=== PATIENT | female | born 1955 | race Caucasian/White ===

== ENCOUNTER 2020-08-06 17:41 | Observation (INO) | payer OTHER ==
[~2020-08-06] VITALS: Ht 157.5 cm; Wt 83.9 kg
[2020-08-06 17:44] VITALS: BP_SYST 160
[2020-08-06 18:36] LABS: BASOPHILS % (AUTO) 0.6 % (0.0-2.0); EOSINOPHILS # (AUTO) 0.3 K/uL (0.0-0.4); EOSINOPHILS % (AUTO) 4.9 % (0.0-4.0); HEMOGLOBIN 14.5 g/dL (12.0-16.0); LYMPHOCYTES # (AUTO) 1.9 K/uL (1.0-5.5); LYMPHOCYTES % (AUTO) 34.1 % (20.5-51.5); MEAN CORPUSCULAR HEMOGLOBIN 32 pg (27-31); MEAN CORPUSCULAR HGB CONC 35 % (32-36); MEAN CORPUSCULAR VOLUME 93 fL (79.0-98.0); MONOCYTES # (AUTO) 0.4 K/uL (0.0-1.0); MONOCYTES % (AUTO) 7.7 % (1.7-9.3); NEUTROPHILS % (AUTO) 52.7 % (40.0-70.0); PLATELET COUNT (AUTO) 211 K/uL (130-430); RED BLOOD CELL COUNT(AUTO) 4.52 MIL/uL (4.2-6.2); RED CELL DISTRIBUTION WIDTH 13.1 % (9.0-15.0); WHITE BLOOD COUNT (AUTO) 5.6 K/uL (4.8-10.8)
[2020-08-06 18:49] LABS: BILIRUBIN,URINE NEGATIVE (NEGATIVE); BLOOD, URINE NEGATIVE (NEGATIVE); CLARITY/URINE CLEAR (CLEAR); COLOR,URINE YELLOW (YELLOW); GLUCOSE,URINE NEGATIVE (NEGATIVE); KETONES,URINE NEGATIVE (NEGATIVE); LEUKOCYTE ESTERASE ,URINE TRACE (NEGATIVE); NITRITE, URINE NEGATIVE (NEGATIVE); PROTEIN URINE NEGATIVE (NEGATIVE); UROBILINOGEN,URINE 0.2 (0.2-1.0)
[2020-08-06 18:51] LABS: ANION GAP 9 (5-15); CHLORIDE 105 mmol/L (98-107); CREATININE 0.72 mg/dL (0.55-1.30); GLUCOSE 122 mg/dL (70-99); POTASSIUM 3.8 mmol/L (3.5-5.1); SODIUM SERUM 143 mmol/L (136-145); UREA NITROGEN, BLOOD 15 mg/dL (8-21)
[2020-08-06 18:52] LABS: GFR AFRICAN AMERICAN 105 mL/min (>90)
[2020-08-06 19:00] LABS: BACTERIA,URINE RARE /HPF (None Seen); RBC,URINE NONE SEEN /HPF (0-3); WBC,URINE 0-3 /HPF (0-3)
[2020-08-06] MEDS ORDERED: ASPIRIN 325 MG TABLET PO ONE (19:30)
[2020-08-06] MEDS ORDERED: LOSA25TA18 PO (20:27)
[2020-08-06] MEDS ORDERED: FLAX100032 PO (20:27)
[2020-08-06] MEDS ORDERED: VENL37.587 PO (20:27)
[2020-08-06] MEDS ORDERED: CYAN250010 PO (20:27)
[2020-08-06] MEDS ORDERED: LORA10CA PO (20:27)
[2020-08-06] MEDS ORDERED: METF-834 PO (20:27)
[2020-08-06] MEDS ORDERED: L.RH1CAP PO (20:27)
[2020-08-06] MEDS ORDERED: LOVA40TA75 PO (20:27)
[2020-08-06] MEDS ORDERED: ZINC50TA69 PO (20:27)
[2020-08-06] MEDS ORDERED: MELA10TA2 PO (20:27)
[2020-08-06] MEDS ORDERED: CHOL500013 PO (20:27)
[2020-08-06] MEDS ORDERED: METO-540 PO (20:27)
[2020-08-06 20:59] VITALS: BP_SYST 137
[2020-08-06] MEDS ORDERED: ALBUTEROL SULFATE 0.083% 2.5 MG/3 ML VIAL.NEB INH PRN (21:15)
[2020-08-06] MEDS ORDERED: INSULIN REGULAR, HUMAN 100 UNITS/ML, 10 ML VIAL (humuLIN R) SUBCUT PRN (21:30)
[2020-08-06] MEDS: ACETAMINOPHEN 325 MG TABLET PO PRN (22:32)
[2020-08-06 22:57] VITALS: BP_SYST 137
[2020-08-07 01:00] VITALS: BP_SYST 106
[2020-08-07 06:55] LABS: BASOPHILS % (AUTO) 0.5 % (0.0-2.0); EOSINOPHILS # (AUTO) 0.3 K/uL (0.0-0.4); EOSINOPHILS % (AUTO) 6.2 % (0.0-4.0); HEMATOCRIT 40.5 % (36-48); HEMOGLOBIN 13.9 g/dL (12.0-16.0); LYMPHOCYTES # (AUTO) 1.9 K/uL (1.0-5.5); LYMPHOCYTES % (AUTO) 41.7 % (20.5-51.5); MEAN CORPUSCULAR HEMOGLOBIN 32 pg (27-31); MEAN CORPUSCULAR HGB CONC 34 % (32-36); MEAN CORPUSCULAR VOLUME 93 fL (79.0-98.0); MONOCYTES # (AUTO) 0.4 K/uL (0.0-1.0); NEUTROPHILS # (AUTO) 1.9 K/uL (1.8-7.7); NEUTROPHILS % (AUTO) 41.6 % (40.0-70.0); PLATELET COUNT (AUTO) 187 K/uL (130-430); RED BLOOD CELL COUNT(AUTO) 4.33 MIL/uL (4.2-6.2); RED CELL DISTRIBUTION WIDTH 12.9 % (9.0-15.0); WHITE BLOOD COUNT (AUTO) 4.5 K/uL (4.8-10.8)
[2020-08-07 07:45] VITALS: BP_SYST 117
[2020-08-07 07:52] LABS: ALANINE AMINOTRANSFERASE 18 U/L (12-78); ALBUMIN 3.6 g/dL (3.4-4.8); ANION GAP 8 (5-15); ASPARTATE AMINOTRANSFERASE 16 U/L (10-37); CALCIUM 8.7 mg/dL (8.4-11.0); CHLORIDE 106 mmol/L (98-107); CREATININE 0.66 mg/dL (0.55-1.30); GLUCOSE 131 mg/dL (70-99); POTASSIUM 3.8 mmol/L (3.5-5.1); SODIUM SERUM 142 mmol/L (136-145); TOTAL BILIRUBIN 2.4 mg/dL (0.0-1.0); UREA NITROGEN, BLOOD 17 mg/dL (8-21)
[2020-08-07] MEDS: ACETAMINOPHEN 325 MG TABLET PO PRN (08:37)
[2020-08-07 08:45] LABS: GFR AFRICAN AMERICAN 116 mL/min (>90)
[2020-08-07] MEDS ORDERED: ATORVASTATIN 10 MG TABLET PO SCH (09:00)
[2020-08-07] MEDS ORDERED: LOVASTATIN 20 MG TABLET PO SCH (09:00)
[2020-08-07] MEDS ORDERED: ASPIRIN 325 MG TABLET PO SCH (09:00)
[2020-08-07] MEDS ORDERED: LOSARTAN POTASSIUM 25 MG TABLET PO SCH (09:00)
[2020-08-07] MEDS ORDERED: METOPROLOL SUCCINATE 25 MG TAB.SR.24H (TOPROL XL) PO SCH (09:00)
[2020-08-07] MEDS ORDERED: LORATADINE 10 MG TABLET PO SCH (09:00)
[2020-08-07] MEDS ORDERED: Effexor XR 37.5 MG PO SCH ×2 (09:00→09:37)
[2020-08-07 09:04] LABS: CHOLESTEROL 155 mg/dL (<200); HDL CHOLESTEROL 50 mg/dL (>55); LDL CHOLESTEROL 94 mg/dL (<100); TRIGLYCERIDES 96 mg/dL (30-150)
[2020-08-07 12:00] VITALS: BP_SYST 124
[2020-08-07 12:29] VITALS: BP_SYST 124
== END 2020-08-07 13:20 | disposition home or self-care (01) ==
LOC: SED 17:41 → STU 19:34
PROVIDERS: ADMIT Internal Medicine Hospice and Palliative Medicine; ATTEND Internal Medicine Hospice and Palliative Medicine
DX: R07.89 Other chest pain (principal); Z20.822 Contact with and (suspected) exposure to COVID-19; I10 Essential (primary) hypertension; E11.9 Type 2 diabetes mellitus without complications; E78.5 Hyperlipidemia, unspecified; F41.0 Panic disorder [episodic paroxysmal anxiety]; Z88.0 Allergy status to penicillin; Z79.899 Other long term (current) drug therapy
CPT/HCPCS: 36415 ×2; 71045; 80048; 80053; 80061; 81000; 82962; 83036; 84484 ×2; 85025 ×2; 87086; 87426; 93005 ×2; 93306; 99285; G0378 ×2